=== PATIENT | male | born 1955 | race Caucasian/White ===

== ENCOUNTER 2019-06-08 13:07 | Emergency (ER) | payer OTHER ==
--- NOTE | 2019-06-08 13:23 | ED ---
HPI Chest Pain - HPI Summary HPI Summary: The patient is a 64-year-old male arriving via ambulance to [facility] Emergency Department with a chief complaint of shortness of breath and chest pain onset today. He reports that just over a week ago he traveled from [place] to [place]. Yesterday, he developed a slight headache that since resolved. Today, he was working when he suddenly felt sharp chest pain and shortness of breath. He endorses a sore throat and productive cough as well. EMS administered Aspirin and Nitroglycerin during transport which helped to resolve the chest pain, although he still rates his symptoms 7/10 in severity. He is unsure if he has had any contact with sick individuals. No past medical history. No surgeries. Current smoker (1/2 pack per day since young). Admits to occasional alcohol use. No substance use. Family history includes hypertension. Medications reviewed. Allergies noted. - History of Current Complaint Hx Obtained From: Patient, EMS Onset/Duration: Started Hours Ago, Resolved - chest pain Timing: Constant Initial Severity: Severe Current Severity: Moderate Pain Intensity: 7 Pain Scale Used: 0-10 Numeric Chest Pain Location: Diffuse Chest Pain Radiates: No Character: Sharp/Stabbing Aggravating Factor(s): Nothing Alleviating Factor(s): EMS Tx - ASA, NTG x2 Associated Signs and Symptoms: Positive: Chest Pain, Headaches - resolved since yesterday, Shortness of Breath, Productive Cough, Other: - sore throat - Allergy/Home Medications Allergies/Adverse Reactions: Allergies Allergy/AdvReac Type Severity Reaction Status Date / Time No Known Allergies Allergy Verified 06/08/19 13:26 Home Medications: Home Medications Azithromycin TAB* [Zithromax TAB (Z-KALYAN) 250 mg #6 tabs] 250 mg PO DAILY #4 tab 06/08/19 [Rx] PMH/Surg Hx/FS Hx/Imm Hx Endocrine/Hematology History: Denies: Hx Diabetes Cardiovascular History: Denies: Hx Hypercholesterolemia, Hx Hypertension - Surgical History Surgical History: None - Family History Known Family History: Positive: Hypertension - Social History Alcohol Use: Occasionally Hx Substance Use: No Substance Use Type: Reports: None Hx Tobacco Use: Yes Smoking Status (MU): Heavy Every Day Tobacco Smoker Review of Systems Positive: Sore Throat Positive: Chest Pain Positive: Shortness Of Breath, Cough - productive Positive: Headache - resolved All Other Systems Reviewed And Are Negative: Yes Physical Exam - Summary Physical Exam Summary: VITAL SIGNS: Reviewed. GENERAL: Patient is a well-developed although obese male who is lying comfortable in the stretcher. Patient is not in any acute respiratory distress. HEAD AND FACE: No signs of trauma. No ecchymosis, hematomas or skull depressions. No sinus tenderness. EYES: PERRL, EOMI x 2, No injected conjunctiva, no nystagmus. EARS: Hearing grossly intact. Ear canals and tympanic membranes are within normal limits. MOUTH: Oropharynx within normal limits. NECK: Supple, trachea is midline, no adenopathy, no JVD, no carotid bruit, no c- spine tenderness, neck with full ROM. CHEST: Symmetric, no tenderness at palpation. LUNGS: Coarse breath sounds. No wheezing or crackles. CVS: Regular rate and rhythm, S1 and S2 present, no murmurs or gallops appreciated. ABDOMEN: Soft, non-tender. No signs of distention. No rebound, no guarding, and no masses palpated. Bowel sounds are normal. EXTREMITIES: FROM in all major joints, no edema, no cyanosis or clubbing. NEURO: Alert and oriented x 3. No acute neurological deficits. Speech is normal and follows commands. SKIN: Dry and warm. Triage Information Reviewed: Yes Vital Signs Reviewed: Yes Procedures - Sedation Patient Received Moderate/Deep Sedation with Procedure: No Diagnostics - Laboratory Result Diagrams: 06/08/19 13:32 06/08/19 13:32 Lab Statement: Any lab studies that have been ordered have been reviewed, and results considered in the medical decision making process. - EKG 1321 Cardiac Rate: NL - 76 BPM EKG Rhythm: Sinus Rhythm Summary of EKG Findings: EKG at 1321 reveals normal sinus rhythm at rate of [address] elev[address]. Dr. Reyna has reviewed and interpreted this EKG. Re-Evaluation - Re-Evaluation First Eval Re-Evaluation Time: 16:50 Comment: Patient agreeable with admission plan. Second Eval Re-Evaluation Time: 17:20 Comment: Patient made aware of plan for discharge. He is agreeable. Chest Pain Course/Dx - Course Assessment/Plan: The patient is a 64-year-old male arriving via ambulance to [facility] Emergency Department with a chief complaint of shortness of breath and chest pain onset today. He reports that just over a week ago he traveled from [place] to [place]. Yesterday, he developed a slight headache that since resolved. Today, he was working when he suddenly felt sharp chest pain and shortness of breath. He endorses a sore throat and productive cough as well. EMS administered Aspirin and Nitroglycerin during transport which helped to resolve the chest pain, although he still rates his symptoms 7/10 in severity. He is unsure if he has had any contact with sick individuals. No past medical history. No surgeries. Current smoker (1/2 pack per day since young). Admits to occasional alcohol use. No substance use. Family history includes hypertension. Medications reviewed. Allergies noted. Patient exhibits coarse breath sounds during physical exam. In the ED course the patient was placed on a hall monitor, IV access was obtained. Patient given Tylenol and Roxycodone. Blood work w/o a significant abnormality except for glucose 126, alkaline phosphatase 128, and TSH 29.63. Troponin 0.01. COVID19 test pending results. EKG: normal sinus rhythm, no ST elevations. CXR impression: Diffuse interstitial disease with patchy airspace disease of the left lung base. Therefore, patient given IV Rocephin and Azithromycin to treat pneumonia. Second troponin increased to 0.03. I discussed my physical exam and test results with Dr. Tinajero from the hospitalist services, and she agrees to admit the patient to her services. Patient understands and agrees with plan. Patient is hemodynamically stable. ADDENDUM: After patient is admitted, we are made aware that the patient's second troponin is actually 0.00. Patient is safe for discharge with PCP follow up in 2-3 days. Patient is instructed to isolate at home. He will be given a prescription for Zithromax. Patient understands and agrees with plan. Patient reports that all symptoms have resolved. Patient Hear score is: 1 therefore, low suspicion for CAD. Patient is not hypoxic or tachycardic. Wells criteria 0.0 . Therefore, no suspicion for PE. Patient has no abdominal bruit thus no suspicion for AAA. Patients pain does not radiate to the back and pain has resolved thus low suspicion for aortic dissection. I discussed all the findings and test results with the patient. Patient was instructed to return to the emergency room immediately if any of the symptoms return or worsen. Patient understands and agrees. Plan of care was discussed with the patient and patient understands and agrees. All questions were answered at patient satisfaction. There were no further complaints or concerns. PE before discharge : CVS: S1 and S2 present. No murmurs appreciated. Abdominal exam before discharge: Soft, non-tender. No signs of distention. No rebound no guarding, and no masses palpated. Bowel sounds are normal. Patient is alert and oriented x 3. Patient is hemodynamically stable. - Diagnoses Provider Diagnoses: Chest pain, Pneumonia - Provider Notifications Discussed Care Of Patient With: Vicki Tinajero - hospitalist Time Discussed With Above Provider: 16:55 Instructed by Provider To: Other - I discussed the patients case with Dr. Tinajero , who accepts the patient for admission. She will order a CTA for the patient and will follow up with the results. - Critical Care Time Critical Care Statement: Critical care time is provided exclusive of any time spent performing procedures. Discharge ED - Sign-Out/Discharge Documenting (check all that apply): Patient Departure - Patient will be discharged home. - Discharge Plan Condition: Stable Disposition: HOME Prescriptions: Azithromycin TAB* [Zithromax TAB (Z-KALYAN) 250 mg #6 tabs] 250 mg PO DAILY #4 tab Patient Education Materials: Chest Pain (DC), Pneumonia (ED) Forms: COVID-19 Tested & Isolation Referrals: [facility] [Outside] - 3 Days Additional Instructions: Please take the medication for treating your pneumonia. The department of health will contact you within 24 hours concerning coronavirus instructions. Due to the pandemic, you should stay in your house and self quarantine. See the separate quarantine paper for further instructions. You should wear a mask if you're outside of your personal room. We encourage handwashing as well as limited contact with other people including the elderly and the immunocompromised. If any studies were not completed at the time of discharge, you will be called with the relevant results. Return to the emergency department for severe trouble breathing, worsening or concerning symptoms. - Billing Disposition and Condition Condition: STABLE Disposition: Home - Attestation Statements Document Initiated by Scribe: Yes Documenting Scribe: Suzie Stoddard Provider For Whom Celina is Documenting (Include Credential): Xavier Reyna MD Scribe Attestation: Suzie Skinner, scribed for Xavier Reyna MD on 06/09/19 at 0742. Scribe Documentation Reviewed: Yes Provider Attestation: The documentation as recorded by the scribe, Suzie Stoddard accurately reflects the service I personally performed and the decisions made by me, Xavier Reyna MD Status of Scribe Document: Viewed
[2019-06-08 13:52] LABS: ABS Basophils 0.1 10^3/ul (0-0.2); ABS Eosinophils 0.1 10^3/ul (0-0.6); ABS Lymphocytes 1.5 10^3/ul (1.0-4.8); ABS Monocytes 0.6 10^3/ul (0-0.8); ABS Neutrophils 7.4 10^3/ul (1.5-7.7); Eosinophil % 1.4 %; Hematocrit 43 % (42-52); Hemoglobin 14.6 g/dL (14.0-18.0); Lymphocyte % 15.3 %; Mean Corpuscular HGB Conc 34 g/dL (31-36); Mean Corpuscular Hemoglobin 31 pg (27-31); Mean Corpuscular Volume 90 fL (80-94); Nucleated Red Blood Cells % 0.1; Platelet Count 241 10^3/uL (150-450); Red Blood Count 4.74 10^6 /uL (4.18-5.48); Red Cell Distribution Width 14 % (10-15); White Blood Count 9.7 10^3/uL (3.5-10.8)
[2019-06-08 14:03] LABS: Activated Partial Thrombo Time 33.1 seconds (26.0-38.0); INR 1.03 (0.82-1.09)
[2019-06-08] MEDS ORDERED: Acetaminophen TAB* 325 MG PO ONE (14:07)
[2019-06-08] MEDS ORDERED: oxyCODONE TAB* 5 MG TAB PO ONE (14:08)
[2019-06-08 14:11] LABS: Albumin 3.8 g/dL (3.2-5.2); BUN/Creatinine Ratio 15.9 (8-20); EGFR African American 84.7 (>60); Globulin 3.9 g/dL (2-4); Magnesium 1.9 mg/dL (1.9-2.7); Potassium 3.6 mmol/L (3.5-5.0); Total Bilirubin 0.3 mg/dL (0.2-1.0); Total Protein 7.7 g/dL (6.4-8.9)
[2019-06-08 14:13] LABS: Troponin I 0.01 ng/mL (<0.03)
[2019-06-08 14:15] LABS: CKMB ng/mL 3.3 ng/mL (0.6-6.3)
[2019-06-08 14:39] LABS: TSH (Thyroid Stimulating Horm) 29.63 mcIU/mL (0.34-5.60)
[2019-06-08] MEDS ORDERED: cefTRIAXone(*) 1 GM in NS 0.9% 50 ML* 50 ML IVPB ONE (15:33)
[2019-06-08] MEDS ORDERED: Azithromycin 500 mg/250 ml NS 500 MG/250 ML BAG IVPB ONE (15:33)
[2019-06-08] MEDS ORDERED: Iohexol 350* (CONTRAST) 500 ML MDV IV ONE (17:04)
== END 2019-06-08 19:00 | disposition home or self-care (01) ==
LOC: ED 13:07
DX: J18.9 Pneumonia, unspecified organism (principal); R07.9 Chest pain, unspecified; R51 Headache; R05 Cough; J02.9 Acute pharyngitis, unspecified; F17.210 Nicotine dependence, cigarettes, uncomplicated
CPT/HCPCS: 36415; 71045; 80053; 82550; 82553; 83605; 83735; 83880; 84443; 84484; 85025; 85610; 85730; 87040; 87635; 93005; 96365; 96375; 99283; A9270-GY; J0456; J0696; U0003